=== PATIENT | female | born 1935 | race Caucasian/White ===

== ENCOUNTER 2016-09-14 20:03 | Observation (INO) ==
[2016-09-14] MEDS ORDERED: IPRATROPIUM/ALBUTEROL 3 ML AMPUL.NEB NEB ONE ×3 (20:09→21:49)
[2016-09-14] MEDS ORDERED: methylPREDNISolone SOD SUCC 125 MG/2 ML VIAL IV ONE (20:09)
--- NOTE | 2016-09-14 20:11 | Emergency Department Note ---
SOB HPI - General Chief Complaint: Shortness of Breath/Dyspnea Stated Complaint: sob, fever Time Seen by Provider: 09/14/16 20:06 Source: patient, EMS Mode of arrival: ambulatory - History of Present Illness This patient has a history of COPD and has been short of breath for about a week minimal cough MD Complaint: shortness of breath Onset (ago): day(s) - Related Data Home Medications Medication Instructions Recorded Confirmed Duoneb 3 ml Q4HP PRN 09/14/16 09/15/16 HYDROmorphone 4 mg PO Q3HP PRN 09/14/16 09/15/16 Ipratropium 1 spray INTRANASAL TID 09/14/16 09/15/16 Melatonin 3 mg PO DAILY 09/14/16 09/15/16 Metoprolol Succinate 25 mg PO DAILY 09/14/16 09/15/16 PHENobarbital [Phenobarbital] 30 mg PO BID 09/14/16 09/14/16 Pramipexole Di-HCl [Mirapex] 0.125 mg PO DAILY 09/14/16 09/14/16 Pulmicort 2 puff INH HS 09/14/16 09/15/16 Sertraline [Zoloft] 25 mg PO DAILY 09/14/16 09/14/16 Xopenex 45 mcg INH Q4HP PRN 09/14/16 09/15/16 fentaNYL [Fentanyl] 12 mcg TD Q3D 09/14/16 09/15/16 Aspirin [Bre Chewable Aspirin] 81 mg PO 2-3XW 09/15/16 09/15/16 Calcium Carbonate [Antacid] 200 mg PO DAILY 09/15/16 09/15/16 Cetirizine [ZyrTEC] 10 mg PO DAILY 09/15/16 09/15/16 Docusate Sodium [Colace] 100 mg PO BID 09/15/16 09/15/16 Famotidine [Pepcid] 40 mg PO HS 09/15/16 09/15/16 Furosemide [Lasix] 20 mg PO Q2D 09/15/16 09/15/16 Multivitamin with Minerals/Lut 1 each PO DAILY 09/15/16 09/15/16 [[employer] Multivit Tab] Potassium Chloride [Klor-Con 10] 10 meq PO DAILY 09/15/16 09/15/16 Pramipexole Di-HCl [Mirapex] 0.125 mg PO HS 09/15/16 09/15/16 Roflumilast [Daliresp] 500 mcg PO DAILY 09/15/16 09/15/16 Sennosides [Senna] 8.6 mg PO HS 09/15/16 09/15/16 Vitamin D3 1,000 unit PO DAILY 09/15/16 09/15/16 Previous Rx's Medication Instructions Recorded predniSONE [Prednisone] 10 mg PO [facility] #30 tablet 07/15/16 Allergies Allergy/AdvReac Type Severity Reaction Status Date / Time No Known Drug Allergies Allergy Verified 09/14/16 20:08 Review of Systems Constitutional: Denies: fever Eyes: Denies: eye pain ENT ED: Denies: ear pain Cardiovascular: Denies: chest pain Respiratory: Reports: cough, dyspnea, wheezes Gastrointestinal: Denies: abdominal pain Genitourinary: Denies: urgency Musculoskeletal: Denies: back pain Integumentary: Denies: rash Past Medical History - Past Medical History Medical history: Reports: arthritis, CHF, COPD, hypertension Psychiatric history: Reports: no psych history, anxiety - Social History Alcohol use: Reports: Rarely Drug use: Reports: none Physical Exam - General Limitations: no limitations General appearance: alert - Head Head exam: atraumatic - Eye Eye exam: Present: normal appearance - ENT ENT exam: normal exam - Neck Neck exam: Present: normal inspection - Chest Chest inspection: Present: normal inspection - Respiratory Respiratory exam: Present: wheezes - Cardiovascular Cardiovascular exam: Present: regular rate, normal rhythm, normal heart sounds - Abdominal Exam Abdominal exam: Present: soft. Absent: distention, tenderness - Neurological Exam Neurological exam: Present: alert - Psychiatric Psychiatric exam: Present: normal affect - Skin Skin exam: Present: warm, dry Course Vital Signs Temperature 98.0 F 09/14/16 20:04 Pulse Rate 110 H 09/14/16 20:04 Respiratory Rate 22 09/14/16 20:04 Blood Pressure 178/93 09/14/16 20:04 Pulse Oximetry (%) 91 09/14/16 20:04 Temperature 98.5 F 09/15/16 07:15 Pulse Rate 95 H 09/15/16 07:50 Respiratory Rate 12 09/15/16 07:50 Blood Pressure 148/72 09/15/16 07:15 Pulse Oximetry (%) 99 09/15/16 07:50 Shortness of Breath/Dyspnea - Lab Data Lab results reviewed: Yes I reviewed the patient's lab results. Result diagrams: 09/14/16 23:00 09/14/16 23:00 Lab Results 09/14/16 09/14/16 Range/Units 23:00 23:00 WBC 10.2 (4.5-11.0) K/mcL RBC 3.84 L (4.00-5.20) M/mcL Hgb 10.8 L (12.0-15.0) g/dL Hct 31.7 L (36.0-48.0) % MCV 82.4 (80.0-100.0) fL MCH 28.1 (26.0-34.0) pg MCHC 34.0 (31.0-36.0) g/dL RDW 14.4 (11.5-14.5) % Plt Count 231 (140-440) K/mcL MPV 8.4 (7.4-10.4) fL Gran % 88.3 H (38.0-78.0) % Lymph % (Auto) 5.3 L (15.5-49.0) % Edwards % (Auto) 4.3 (1.0-9.0) % Eos % (Auto) 1.7 (0.0-7.0) % Baso % (Auto) 0.4 (0.0-2.0) % Gran # 9.1 H (1.8-8.0) K/mcL Lymph # 0.5 L (1.5-4.8) K/mcL Edwards # 0.4 (0.1-0.9) K/mcL Eos # 0.2 (0.0-0.7) K/mcL Baso # 0 (0.0-0.3) K/mcL Sodium 136 (133-145) mmol/L Potassium 4.4 (3.3-5.1) mmol/L Chloride 96 (96-108) mmol/L Carbon Dioxide 33 H (22-30) mmol/L Anion Gap 7.0 L (8-16) BUN 16 (8-23) mg/dl Creatinine 1.1 (0.6-1.1) mg/dl GFR Calculation 47 Glucose 131 H (70-105) mg/dL Calcium 8.8 (8.6-10.4) mg/dl Total Bilirubin 0.2 (0.0-1.0) mg/dL AST 15 (0-37) U/l ALT 12 (0-40) U/l Alkaline Phosphatase 51 (39-117) U/L Total Protein 6.4 (5.9-8.4) gm/dL Albumin 3.8 (3.2-5.2) gm/dL Globulin 2.6 (2.2-3.7) gm/dL Albumin/Globulin Ratio 1.5 (1.0-2.3) - Radiology Data Radiology results reviewed: Yes I reviewed the patient's radiology results. ( chest x-ray was negative) Disposition Clinical Impression: Acute exacerbation of chronic obstructive airways disease Disposition: Xfer As Outpt/Obs ([facility]) Condition: Good Time of Disposition: 22:12
[2016-09-14] MEDS ORDERED: AZITHROMYCIN 500 MG in DEXTROSE 5% IN WATER 250 ML IV ONE (22:48)
[2016-09-14 23:49] LABS: Basophils # (Auto) 0 K/mcL (0.0-0.3); Basophils % (Auto) 0.4 % (0.0-2.0); Eosinophils # (Auto) 0.2 K/mcL (0.0-0.7); Eosinophils % (Auto) 1.7 % (0.0-7.0); Granulocytes % (Auto) 88.3 % (38.0-78.0); Lymphocytes # (Auto) 0.5 K/mcL (1.5-4.8); Lymphocytes % (Auto) 5.3 % (15.5-49.0); Mean Cell Volume 82.4 fL (80.0-100.0); Mean Corpuscular Hemoglobin 28.1 pg (26.0-34.0); Monocytes # (Auto) 0.4 K/mcL (0.1-0.9); Monocytes % (Auto) 4.3 % (1.0-9.0); Platelet Count 231 K/mcL (140-440); RBC 3.84 M/mcL (4.00-5.20); Red Cell Distribution Width 14.4 % (11.5-14.5)
[2016-09-14 23:52] LABS: ALT/SGPT 12 U/l (0-40); Albumin 3.8 gm/dL (3.2-5.2); Albumin/Globulin Ratio 1.5 (1.0-2.3); Alkaline Phosphatase 51 U/L (39-117); Blood Urea Nitrogen 16 mg/dl (8-23)
[2016-09-15] MEDS ORDERED: ONDANSETRON 4 MG/2 ML VIAL IV PRN (01:05)
[2016-09-15] MEDS ORDERED: MAGNESIUM SULFATE 2 GM/50 ML BAG IV PRN (01:05)
[2016-09-15] MEDS ORDERED: POTASSIUM CHLORIDE 20 MEQ PACKET PO PRN (01:05)
[2016-09-15] MEDS ORDERED: LEVOFLOXACIN 750 MG/150 ML BAG IV SCH (01:05)
[2016-09-15] MEDS ORDERED: traZODone HCL 50 MG TABLET PO PRN (01:05)
[2016-09-15] MEDS ORDERED: guaiFENesin/CODEINE 10 ML UDC PO PRN (01:05)
[2016-09-15] MEDS ORDERED: LEVOFLOXACIN 750 MG/150 ML BAG IV ONE (01:08)
[2016-09-15] MEDS ORDERED: traZODone HCL 50 MG TABLET ONE (01:17)
[2016-09-15] MEDS ORDERED: ACETAMINOPHEN 325 MG TABLET PO ONE (01:17)
[2016-09-15] MEDS: ACETAMINOPHEN 325 MG TABLET PO PRN ×2 (01:19→16:57)
[2016-09-15] MEDS: methylPREDNISolone SOD SUCC 125 MG/2 ML VIAL ONE ×2 (01:38→02:24)
[2016-09-15] MEDS ORDERED: IPRATROPIUM/ALBUTEROL 3 ML AMPUL.NEB NEB ONE (02:58)
[2016-09-15] MEDS: IPRATROPIUM/ALBUTEROL 3 ML AMPUL.NEB NEB SCH ×6 (03:02→22:35)
[2016-09-15] MEDS: 0.9 % SODIUM CHLORIDE 10 ML SYRINGE IV SCH ×4 (03:03→20:50)
--- NOTE | 2016-09-15 05:33 | XRay Report ---
CLINICAL INFORMATION: Shortness of breath COMPARISON: 07/15/2016 FINDINGS: Small hiatal hernia is unchanged. The remaining cardiomediastinal silhouette and pulmonary vasculature are unremarkable. Moderate centrilobular emphysema changes (known from 10/03/2013 CT) are again noted. There are no infiltrates or nodules. No effusions. Severe degenerative changes noted in the right glenohumeral joint IMPRESSION: 1. No acute disease 2. Moderate centrilobular emphysema - also known from a prior CT 3. Small hiatal hernia - stable 4. Severe right glenohumeral degeneration 5. Compression fractures of the upper thoracic spine - stable Interpreted and Authenticated by: Neo Willis 09/15/16
[2016-09-15] MEDS: BUDESONIDE 0.5 MG/2 ML AMPUL.NEB NEB SCH ×2 (08:05→19:00)
[2016-09-15] MEDS: methylPREDNISolone SOD SUCC 125 MG/2 ML VIAL IV SCH ×2 (08:09→20:40)
[2016-09-15] MEDS: DOCUSATE SODIUM 100 MG CAPSULE PO SCH ×3 (08:13→20:43)
[2016-09-15] MEDS: HEPARIN 5,000 UNIT/ML VIAL SQ SCH ×2 (08:15→20:40)
[2016-09-15 08:46] LABS: Estimated Average Glucose(eAG) 126 mg/dL
[2016-09-15] MEDS ORDERED: MULTIVIT,THER IRON,CA,FA & MIN 1 TABLET PO SCH (09:00)
[2016-09-15] MEDS: IPRATROPIUM 0.03% NASAL SPRAY BOTTLE 30ML NAS SCH ×3 (09:30→20:40)
--- NOTE | 2016-09-15 11:07 | History and Physical Report ---
DATE OF ADMISSION: 09/15/2016 REASON FOR ADMISSION: Worsening shortness of breath. HISTORY OF CHIEF COMPLAINT: The patient is an 81-year-old with known history of 02 dependent COPD who came to [facility] Emergency Room with worsening shortness of breath that has progressed over the last few days. The patient denies sick contacts or recent exposure to smoke, passive or active. She endorses to increasing productive sputum along with increasing purulence and dyspnea has progressed to the point that she could barely function or move and limiting her ability to perform activities of daily living. Initial workup in the ER was essentially unremarkable with normal white count and no significant imaging abnormality other than moderate central lobar emphysema. Initial blood gas 7.39/60/74 on 2 liters. However, due to persistent dyspnea Hospitalist Service was consulted for admission. At the time of examination, the patient is unable to talk in full sentences. She is frail, lethargic, weak and appears distressed. She denies fever, shaking chills, diarrhea, dysuria, new onset of rash, or joint pain. She further denies changes in medications. She is up to date on flu and pneumonia vaccine. REVIEW OF SYSTEMS: Ten-point review of system was performed and negative except the ones discussed above. PAST MEDICAL HISTORY: 1. Emphysema, COPD on 2 liters of oxygen. 2. Hypothyroidism 3. GERD. 4. Anxiety. 5. Osteoarthritis. 6. Gout. CURRENT MEDICATIONS: 1. Phenobarbital 30 mg b.i.d. 2. Pramipexole 0.125 mg b.i.d. daily. 3. Sertraline 25 mg daily. 4. Prednisone 10 mg q.a.m. 5. Pulmicort inhaled at bedtime. 6. Famotidine 40 mg at bedtime. 7. Cetirizine 10 mg daily. 8. Roflumilast 500 mg daily. 9. Fentanyl 12 mcg every 3 days. FAMILY HISTORY: Significant for hypertension and CVA in mother, cancer is in three brothers, lung cancer and diabetes in sister. SOCIAL HISTORY: The patient lives at [facility]. She has a daughter who lives in town. She carries over a [id number] history of smoking, but quit 5 years ago. No history of alcoholism or substance abuse. She is FULL CODE STATUS. She is a . She sees primary care physician, Yobany Atkinson MD. ALLERGIES: None significant. PHYSICAL EXAMINATION: GENERAL: The patient is fairly lethargic, short of breath. BMI 18.7. Height 5 feet 2 inches. VITAL SIGNS: Blood pressure 121/65, respiratory rate 14, temperature 97.4, pulse 95, sats 99% on 2 liters of oxygen. HEENT: Pupils symmetric. Oral cavity is dry. No ear or nose discharge. Head is normocephalic and atraumatic. NECK: No lymphadenopathy. HEART: S1, S2, tachycardia. Ejection systolic murmur grade 1. CHEST: Diminished breath sounds with prolonged expiratory phase, rhonchi, but no crackles. ABDOMEN: Soft and nontender. LOWER EXTREMITIES: No cyanosis or clubbing. No joint swelling. SKIN: No suspicious lesions. PSYCHIATRIC: Alert but anxious, unable to talk in full sentences. No agitation. NEURO: Nonfocal, moving all four extremities. LABS AND IMAGING: White count 10.2, hemoglobin 10.8, platelets 231. Sodium 136, potassium 4.4, creatinine 1.1, BUN 16, procalcitonin less than 0.5. ABGs 7.39/60/74. Chest x-ray: No acute process other than moderate central lobar emphysema, compression fracture of thoracic spine. ASSESSMENT AND PLAN: An 81-year-old with O2 dependent COPD admitted with COPD exacerbation. 1. COPD exacerbation. Start patient on bronchodilators, IV steroids and pulmonary toilet. Unclear precipitant, unlikely infectious origin given procalcitonin less than 0.05. Admit as observation. Continue supplemental oxygen and COPD management per guidelines. 2. Other prior medical issues, including: a. History of chronic pain. Continue fentanyl. b. Anxiety disorder. Continue sertraline. c. Restless leg syndrome. Continue pramipexole. PLAN FOR TODAY: 1. Admit as observation. 2. Preexisting medical condition management as above. 3. COPD exacerbation, managed per guidelines. AA:[email or web address] Job ID: [id number] Doc ID: [id number] Vipul Atkinson MD
[2016-09-15] MEDS: ALBUTEROL SULFATE 1 PUFF INHALER INH PRN (16:08)
[2016-09-15] MEDS ORDERED: HYDROmorphone 2 MG TABLET ONE (18:29)
[2016-09-15] MEDS ORDERED: HYDROMORPHONE 4 MG PO PRN (19:02)
[2016-09-15] MEDS: PRAMIPEXOLE 0.25 MG TABLET PO SCH (20:18)
[2016-09-15] MEDS: METOPROLOL SUCCINATE 25 MG TAB.XL.24H PO SCH (20:41)
[2016-09-15] MEDS: SERTRALINE 50 MG TABLET PO SCH (20:41)
[2016-09-15] MEDS: SENNOSIDES/DOCUSATE SODIUM 1 TAB TABLET PO SCH ×2 (20:43→21:28)
[2016-09-15] MEDS ORDERED: FAMOTIDINE 20 MG TABLET PO SCH (21:00)
[2016-09-15] MEDS ORDERED: SENNOSIDES 1 TABLET PO SCH (21:00)
[2016-09-15] MEDS ORDERED: PULMICORT INH SCH (21:00)
[2016-09-15] MEDS ORDERED: PRAMIPEXOLE DI HCL 0.125 MG PO SCH (21:00)
[2016-09-15] MEDS ORDERED: PHENobarbital 30 MG TABLET PO SCH (21:00)
[2016-09-15] MEDS ORDERED: IPRATROPIUM INTRANASAL SCH (21:00)
[2016-09-15] MEDS: HYDROmorphone 2 MG TABLET PO PRN (22:15)
[2016-09-16] MEDS: ALBUTEROL SULFATE 1 PUFF INHALER INH PRN ×3 (01:35→10:53)
[2016-09-16] MEDS: IPRATROPIUM/ALBUTEROL 3 ML AMPUL.NEB NEB SCH ×2 (03:58→08:00)
[2016-09-16] MEDS: HYDROmorphone 2 MG TABLET PO PRN (04:37)
[2016-09-16 05:43] LABS: Mean Cell Volume 84.9 fL (80.0-100.0); Mean Corpuscular HGB Conc 31.9 g/dL (31.0-36.0); Mean Corpuscular Hemoglobin 27.1 pg (26.0-34.0); Platelet Count 274 K/mcL (140-440); RBC 4.12 M/mcL (4.00-5.20); Red Cell Distribution Width 14.9 % (11.5-14.5)
[2016-09-16] MEDS: 0.9 % SODIUM CHLORIDE 10 ML SYRINGE IV SCH (05:59)
[2016-09-16 06:44] LABS: ALT/SGPT 17 U/l (0-40); Albumin 4.2 gm/dL (3.2-5.2); Albumin/Globulin Ratio 1.7 (1.0-2.3); Alkaline Phosphatase 57 U/L (39-117); Bilirubin,Direct < 0.2 mg/dL (0.0-0.3); Blood Urea Nitrogen 14 mg/dl (8-23); Gamma Glutamyl Transpeptidase 36 U/L (5-36); Magnesium 1.9 mg/dL (1.6-2.5); Phosphorous 4.8 mg/dL (2.7-4.5); Uric Acid 5.2 mg/dL (2.5-8.0)
[2016-09-16] MEDS ORDERED: predniSONE 10 MG TABLET PO SCH (08:00)
[2016-09-16] MEDS: BUDESONIDE 0.5 MG/2 ML AMPUL.NEB NEB SCH (08:00)
[2016-09-16] MEDS: SERTRALINE 50 MG TABLET PO SCH (08:52)
[2016-09-16] MEDS: PRAMIPEXOLE 0.25 MG TABLET PO SCH (08:54)
[2016-09-16] MEDS: METOPROLOL SUCCINATE 25 MG TAB.XL.24H PO SCH (08:58)
[2016-09-16] MEDS: DOCUSATE SODIUM 100 MG CAPSULE PO SCH (08:58)
[2016-09-16] MEDS ORDERED: LEVOFLOXACIN 750 MG/150 ML BAG IV SCH (09:00)
[2016-09-16] MEDS ORDERED: CETIRIZINE 10 MG TABLET PO SCH (09:00)
[2016-09-16] MEDS ORDERED: MULTIVIT,THER IRON,CA,FA & MIN 1 TABLET PO SCH (09:00)
[2016-09-16] MEDS ORDERED: POTASSIUM CHLORIDE 10 MEQ TABLET PO SCH (09:00)
[2016-09-16 09:02] LABS: Anisocytosis FEW (NONE SEEN); Lymphocytes % 14 % (15-49); Monocytes % (Manual) 2 % (1-9); Myelocytes % 1 % (0-0); Platelet Estimate NORMAL (NORMAL); RBC Morphology ABNORM (NORMAL); Segmented Neutrophils % 83 % (38-78)
[2016-09-16] MEDS: IPRATROPIUM 0.03% NASAL SPRAY BOTTLE 30ML NAS SCH (09:03)
[2016-09-16] MEDS: HEPARIN 5,000 UNIT/ML VIAL SQ SCH (09:04)
[2016-09-16] MEDS ORDERED: predniSONE 20 MG TABLET PO ONE (09:52)
[2016-09-16] MEDS ORDERED: LEVOFLOXACIN 750 MG TABLET PO ONE (09:54)
[2016-09-16] MEDS ORDERED: fentaNYL 12 MCG PATCH TOPICAL SCH (10:00)
--- NOTE | 2016-09-16 10:42 | Discharge Plan ---
Discharge Plan - Patient/Caregiver Discharge Instructions Discharge Summary: DISCHARGE DIAGNOSIS * COPD exacerbation-advanced COPD on home oxygen. Patient did well on IV steroids. No evidence of infectious process. continue oral steroid for additional 5 days. Likely precipitated by acute bronchitis. ischarging alireza Mao with detailed discharge instructions as below * anxiety disorder on home dose sertraline * Hypertension on metoprolol * Chronic pain and hydromorphone/fentanyl BRIEF HOSPITAL COURSE Patient was admitted with COPD exacerbation with significant dyspnea likely precipitant for acute bronchitis. Patient responded well to breathing treatments IV steroids and COPD management per guidelines. No significant change in blood gases or worsening hypoxiaand hands was admitted as observation. Patient is feeling close to her baseline. She is being discharged with outpatient follow PCP and also partly function test in 3 weeks to assess progression of COPD based on golds staging. Detailed discharge instructions as below Activity: as per physical therapy Diet: Regular Diet Additional Instructions: Follow-up PCP in 5 days I recommend primary care physician to check CBC BMP UA as a posthospital follow- up Antibiotics for additional 2 days steroids for 5 days oxygen @ home settings to keep sats around 88% Please schedule pulmonary function test as outpatient in 3 weeks Continue aggressive bowel regimen to prevent constipation Continue fall precautions All meals on chair sitting upright at 90 degrees to prevent aspiration Return to ER if worsening fever chills shortness of breath, diarrhea, bleeding Review risk and side effect profile of medications including antibiotics. Side effect may include mild to severe reaction including rash, diarrhea, cdiff and even which can be prevented by close follow-up with PCP and monitoring for side effects Continue diet and activity as advised Discussed importance of medication adherence Please review medication list with patient prior to discharge Please schedule follow-up with PCP/Providers prior to discharge and provide printouts Portions of this chart may have been created with [employer] voice recognition software. Occasional wrong-word or ?sound-like? substitutions may have occurred due to the inherent limitations of voice recognition software. Please read the chart carefully and recognize, using context, where the substitutions have occurred. CC- PCP Prescriptions: Levofloxacin [Levaquin] 750 mg PO DAILY #2 tablet predniSONE [Prednisone] 50 mg PO DAILY #5 tablet - Follow up Plan Follow up with: Yobany Atkinson MD [Primary Care Provider] - (Please call and schedule a follow up appointment to be seen in 5 days.) Disposition: Home Health Service Prognosis: Good Rehab Potential: Fair I certify that the patient requires SNF services.: No Overall status at discharge: patient is progressing back to baseline
[2016-09-16] MEDS: methylPREDNISolone SOD SUCC 125 MG/2 ML VIAL IV SCH (11:00)
[2016-09-16] MEDS ORDERED: BUDESONIDE 1 PUFF INHALER INH SCH (21:00)
[2016-09-16] MEDS ORDERED: PRAMIPEXOLE 0.25 MG TABLET PO SCH (21:00)
[2016-09-17] MEDS ORDERED: FUROSEMIDE 20 MG TABLET PO SCH (09:00)
[2016-09-18] MEDS ORDERED: ASPIRIN 81 MG TAB.CHEW PO SCH (19:15)
== END 2016-09-16 11:00 | disposition home health service (06) ==
LOC: ED 20:03 → MEDSUR 20:03
PROVIDERS: ADMIT Internal Medicine; ATTEND Internal Medicine